=== PATIENT | female | born 1985 | race Caucasian/White ===

== ENCOUNTER 2017-05-22 07:47 | Emergency (ER) | payer OTHER ==
[~2017-05-22] VITALS: Ht 160 cm; Wt 82.5 kg
[2017-05-22] MEDS ORDERED: HYDR-3713 PO (07:58)
[2017-05-22] MEDS ORDERED: MEDR1VL IM (07:59)
[2017-05-22] MEDS ORDERED: METAL LOCK LOOP XX ONE (08:38)
[2017-05-22 09:28] VITALS: BP 124/73
== END 2017-05-22 09:34 | disposition home or self-care (01) ==
LOC: M ED 07:47
DX: K59.00 Constipation, unspecified (principal); Z79.3 Long term (current) use of hormonal contraceptives